=== PATIENT | female | born 1985 | race Two or more races ===

== ENCOUNTER 2017-01-28 13:20 | Observation (INO) | payer SELFPAY | END 2017-01-28 14:45 | disposition home or self-care (01) | DRG 781 | LOC: LDRP 13:20 | PROVIDERS: ADMIT Obstetrics & Gynecology; ATTEND Obstetrics & Gynecology | DX: O26.853 Spotting complicating pregnancy, third trimester (principal); O26.893 Other specified pregnancy related conditions, third trimester; O62.9 Abnormality of forces of labor, unspecified; M54.9 Dorsalgia, unspecified; Z3A.35 35 weeks gestation of pregnancy | CPT/HCPCS: 59025; 76815; 81002; G0378 ==

== ENCOUNTER 2017-02-09 12:25 | Observation (INO) | payer SELFPAY ==
[~2017-02-09] VITALS: Ht 154.9 cm; Wt 89.4 kg
[2017-02-09] MEDS ORDERED: LACTATED RINGER'S 2,000 ML IV ONE (13:30)
== END 2017-02-09 14:50 | disposition home or self-care (01) | DRG 781 ==
LOC: LDRP 12:25
PROVIDERS: ADMIT Obstetrics & Gynecology; ATTEND Obstetrics & Gynecology
DX: O21.2 Late vomiting of pregnancy (principal); O99.613 Diseases of the digestive system complicating pregnancy, third trimester; K92.89 Other specified diseases of the digestive system; K52.9 Noninfective gastroenteritis and colitis, unspecified; R19.7 Diarrhea, unspecified; Z3A.37 37 weeks gestation of pregnancy
CPT/HCPCS: 59025; 81002; G0378

== ENCOUNTER 2017-02-27 09:35 | Observation (INO) | payer MEDICAID ==
[2017-02-27] MEDS ORDERED: LACTATED RINGER'S 1,000 ML IV ONE (11:15)
== END 2017-02-27 13:10 | disposition home or self-care (01) | DRG 566 ==
LOC: LDRP 09:35
PROVIDERS: ADMIT Obstetrics & Gynecology; ATTEND Obstetrics & Gynecology
DX: O62.9 Abnormality of forces of labor, unspecified (principal); O26.893 Other specified pregnancy related conditions, third trimester; M54.9 Dorsalgia, unspecified; R10.9 Unspecified abdominal pain; Z3A.39 39 weeks gestation of pregnancy
CPT/HCPCS: 59025; 81002; 96366; G0378

== ENCOUNTER 2017-02-27 22:12 | Inpatient (IN) | payer MEDICAID ==
[~2017-02-27] VITALS: Ht 154.9 cm; Wt 93.0 kg
[2017-02-27] MEDS ORDERED: LACTATED RINGER'S 1,000 ML IV SCH (22:50)
[2017-02-27] MEDS ORDERED: LACT. RINGERS/OXYTOCIN 20UNITS 1,000 ML IV SCH (22:50)
[2017-02-27] MEDS ORDERED: DERMOPLAST 60ML BOTTLE TOP PRN (23:00)
[2017-02-27] MEDS ORDERED: NALBUPHINE HCL 10 MG/1ml INJECTION IV PRN (23:00)
[2017-02-27] MEDS ORDERED: WITCH HAZEL-GLYCERIN PAD TOP PRN (23:00)
[2017-02-27] MEDS ORDERED: METHYLERGONOVINE MALEATE 0.2 MG/ML AMP IM PRN (23:00)
[2017-02-27] MEDS ORDERED: PENICILLIN G POT 5MIL/D5 50ML 50 ML IV ONE (23:00)
[2017-02-27] MEDS ORDERED: PHISODERM TOP SOLN 240ML BTL TOP PRN (23:00)
[2017-02-27] MEDS ORDERED: LIDOCAINE 2%HCL (LOCAL ANESTH.) INJ 20ML MDV IJ ONE (23:00)
[2017-02-27 23:19] LABS: Urine RBC None Seen /hpf (0 - 4)
[2017-02-27 23:25] LABS: Basophils # (auto) 0 uL; Basophils % (auto) 0.1 % (0.0-2.0); Eosinophils # (auto) 0 uL; Eosinophils % (auto) 0.3 % (0.0-7.0); Hematocrit 34.5 % (36.0-46.0); Hemoglobin 11.5 g/dL (12.2-16.2); Lymphocytes # (auto) 1.9 uL; Lymphocytes % (auto) 16.8 % (10.0-50.0); Mean Corpuscular Hgb Conc. 33.3 g/dL (32.0-36.0); Mean Corpuscular Volume 93.2 fL (80.0-100.0); Mean Platelet Volume 7.8 fL (7.4-10.4); Monocytes % (auto) 9.1 % (0.0-12.0); Neutrophils # (auto) 8.3 uL; Neutrophils % (auto) 73.7 % (37.0-80.0); Platelet Count (auto) 368 10^3/uL (140-450); Red Cell Distribution Width 12.7 % (11.6-16.0); White Blood Cell 11.2 10^3/uL (4.4-10.8)
[2017-02-27 23:33] LABS: Urine Ca Oxalate Crystal FEW (None Seen); Urine Mucus FEW (None Seen); Urine Squamous Epithelial Cell FEW /hpf (<5)
[2017-02-27 23:41] LABS: INR 0.86 (0.9-1.15); Partial Thromboplastin Time 24.7 sec (22.64-33.71); Prothrombin Time 9.4 sec (9.37-12.3)
[2017-02-27 23:46] LABS: Albumin 2.4 g/dL (3.4-5.0); BUN/Creatinine Ratio 13.4; Calcium 8.3 mg/dL (8.5-10.1); Potassium 3.8 mmol/L (3.5-5.1)
[2017-02-27 23:49] LABS: Bilirubin, Total 0.3 mg/dL (0.2-1.0); Total Protein 6.4 g/dL (6.4-8.2)
[2017-02-28] LABS: Urine Bilirubin Negative (Negative); Urine Blood 1+ /uL (Negative); Urine Color Yellow (Yellow); Urine Glucose Normal (Normal); Urine Urobilinogen Normal (Negative)
[2017-02-28 00:01] LABS: Urine Ketone Negative (Negative); Urine Nitrite Negative (Negative)
[2017-02-28] MEDS ORDERED: ACETAMINOPHEN 325 MG TAB PO PRN (02:30)
[2017-02-28] MEDS ORDERED: PENICILLIN G POTASSIUM 2,500,000 UNITS in D5W 5% 50 ML IV SCH (03:00)
[2017-02-28] MEDS: IBUPROFEN 600 MG TAB PO PRN ×4 (03:03→18:15)
[2017-02-28] MEDS ORDERED: LACT. RINGERS/OXYTOCIN 20UNITS 1,000 ML IV SCH (03:23)
[2017-02-28 06:45] VITALS: BP 98/57
[2017-02-28 11:33] VITALS: BP 99/61
[2017-02-28 16:00] VITALS: BP 101/60
[2017-02-28 20:30] VITALS: BP 99/55
[2017-02-28 20:34] VITALS: BP 99/55
[2017-02-28 23:20] VITALS: BP 98/57
[2017-03-01] MEDS: IBUPROFEN 600 MG TAB PO PRN ×2 (01:01→08:24)
[2017-03-01 04:30] VITALS: BP 102/60
[2017-03-01 08:00] VITALS: BP 103/62
== END 2017-03-01 10:20 | disposition home or self-care (01) | DRG 560 ==
LOC: LDRP 22:12 → OBSVTOIN 22:12 → LDRP 23:14
PROVIDERS: ADMIT Obstetrics & Gynecology; ATTEND Obstetrics & Gynecology
PROC: 10E0XZZ Delivery of Products of Conception, External Approach (ICD-10-PCS; principal; 2017-02-28)
DX: O66.0 Obstructed labor due to shoulder dystocia (principal); O99.824 Streptococcus B carrier state complicating childbirth; O69.81X0 Labor and delivery complicated by cord around neck, without compression, not applicable or unspecified; Z37.0 Single live birth; Z3A.39 39 weeks gestation of pregnancy
CPT/HCPCS: 36415; 59025; 59409; 80053; 80307; 81001; 85025; 85610; 85730; 86592; 86850; 86900; 86901; 96361; 96366; J2540; J2590; J7060

== ENCOUNTER 2021-05-02 16:21 | Emergency (ER) | payer MEDICAID ==
[~2021-05-02] VITALS: Ht 154.9 cm; Wt 74.8 kg
[2021-05-02 20:14] VITALS: BP 121/79
== END 2021-05-02 20:43 | disposition home or self-care (01) ==
LOC: ER 16:21
DX: S61.305A Unspecified open wound of left ring finger with damage to nail, initial encounter (principal); E66.9 Obesity, unspecified; Z68.31 Body mass index [BMI] 31.0-31.9, adult; X58.XXXA Exposure to other specified factors, initial encounter; Y93.89 Activity, other specified; Y92.89 Other specified places as the place of occurrence of the external cause; Y99.8 Other external cause status
CPT/HCPCS: 11730; 73130